=== PATIENT | female | born 1980 | race Caucasian/White ===

== ENCOUNTER 2016-03-25 14:20 | Emergency (ER) | payer BC | END 2016-03-25 15:35 | disposition left against medical advice (07) | LOC: UCEAST 14:20 | DX: Z53.21 Procedure and treatment not carried out due to patient leaving prior to being seen by health care provider (principal); R30.0 Dysuria ==

== ENCOUNTER 2017-08-14 01:13 | Emergency (ER) | payer BC ==
[2017-08-14] MEDS ORDERED: Metoclopramide IV* 5 MG/ML 2 ML VIAL IV ONE (01:40)
[2017-08-14] MEDS ORDERED: NS 0.9% 1000 ML* 1,000 ML IV ONE (01:40)
[2017-08-14] MEDS ORDERED: Ketorolac INJ* 30 MG/ML 1 ML VIAL IV ONE (01:40)
[2017-08-14 02:08] LABS: ABS Basophils 0.1 10^3/ul (0-0.2); ABS Eosinophils 0.2 10^3/ul (0-0.6); ABS Lymphocytes 4.1 10^3/ul (1.0-4.8); ABS Monocytes 1.1 10^3/ul (0-0.8); ABS Neutrophils 7.6 10^3/ul (1.5-7.7); ABS Nucleated RBC 0 10^3/ul; Eosinophil % 1.6 % (0-6); Hematocrit 38 % (35-47); Hemoglobin 12.7 g/dl (12.0-16.0); Mean Corpuscular HGB Conc 34 g/dl (31-36); Mean Corpuscular Hemoglobin 28 pg (27-31); Mean Corpuscular Volume 84 fL (80-97); Mean Platelet Volume 11.4 um3 (7.4-10.4); Nucleated Red Blood Cells % 0.1; Platelet Count 185 10^3/ul (150-450); Red Blood Count 4.52 10^6/ul (4.0-5.4); Red Cell Distribution Width 14 % (10.5-15); White Blood Count 13.1 10^3/ul (3.5-10.8)
[2017-08-14 02:19] LABS: INR 0.9 (0.77-1.02)
[2017-08-14 02:23] LABS: Urine Appearance Cloudy; Urine Blood 3+ (Negative); Urine Ketones Negative (Negative); Urine Protein 2+(100 mg/dL) (Negative); Urine Specific Gravity 1.023 (1.010-1.030); Urine Urobilinogen Negative (Negative)
[2017-08-14 02:25] LABS: EGFR Non-African American 67.8 (>60); Urine Color Red
[2017-08-14] MEDS ORDERED: Sulfamethox/Trimethoprim DS 800/160* TAB PO ONE (03:14)
[2017-08-14 03:33] VITALS: BP 118/71
--- NOTE | 2017-08-14 03:40 | ED ---
Papa Garcia Tiffany, scribed for Abran Savage MD on 08/14/17 at 0141 . Abdominal Pain/Female - HPI Summary HPI Summary: 36 y/o F presenting to [facility] complains of right flank pain since 2 days ago, worse since three hours ago. The pain radiates across her back. The patient rates the pain 7/10 in severity. Symptoms aggravated and alleviated by nothing. Reports abdominal pain, blood in urine, burning with urination, lower back pain , urgency. Denies fever, vomiting. States she started cipro yesterday. - History of Current Complaint Chief Complaint: EDFlankPain Stated Complaint: UTI Time Seen by Provider: 08/14/17 01:32 Hx Obtained From: Patient Onset/Duration: Lasting Days - 2, Still Present, Worse Since - three hours ago Severity Currently: Moderate Pain Intensity: 7 Pain Scale Used: 0-10 Numeric Radiates: Yes Radiates to: Other - across back Aggravating Factor(s): Nothing Alleviating Factor(s): Nothing Associated Signs and Symptoms: Positive: Other: - abdominal pain, blood in urine , burning with urination, lower back pain, urgency. Negative: Fever, Vomiting Allergies/Adverse Reactions: Allergies Allergy/AdvReac Type Severity Reaction Status Date / Time No Known Allergies Allergy Verified 01/09/12 15:36 PMH/Surg Hx/FS Hx/Imm Hx Previously Healthy: No Endocrine/Hematology History: Denies: Hx Diabetes Psychiatric History: Reports: Hx Anxiety, Hx Depression - Surgical History Surgery Procedure, Year, and Place: None Infectious Disease History: No Infectious Disease History: Denies: Traveled Outside the [place] in Last 30 Days - Family History Known Family History: Positive: Other - Reviewed and noncontributory - Social History Alcohol Use: None Hx Substance Use: No Substance Use Type: Reports: None Hx Tobacco Use: No Smoking Status (MU): Never Smoked Tobacco Review of Systems Negative: Fever Positive: Abdominal Pain. Negative: Vomiting Positive: burning, hematuria, urgency Positive: Other - Right flank pain, lower back pain All Other Systems Reviewed And Are Negative: Yes Physical Exam - Summary Physical Exam Summary: VITAL SIGNS: Reviewed. GENERAL: Patient is a well-developed and nourished (MALE OR FEMALE) who is lying comfortable in the stretcher. Patient is not in any acute respiratory distress. HEAD AND FACE: No signs of trauma. No ecchymosis, hematomas or skull depressions. No sinus tenderness. EYES: PERRLA, EOMI x 2, No injected conjunctiva, no nystagmus. EARS: Hearing grossly intact. Ear canals and tympanic membranes are within normal limits. MOUTH: Oropharynx within normal limits. NECK: Supple, trachea is midline, no adenopathy, no JVD, no carotid bruit, no c- spine tenderness, neck with full ROM. CHEST: Symmetric, no tenderness at palpation LUNGS: Clear to auscultation bilaterally. No wheezing or crackles. CVS: Regular rate and rhythm, S1 and S2 present, no murmurs or gallops appreciated. ABDOMEN: Suprapubic tenderness. Right CVA tenderness. EXTREMITIES: FROM in all major joints, no edema, no cyanosis or clubbing. NEURO: Alert and oriented x 3. No acute neurological deficits. Speech is normal and follows commands. SKIN: Dry and warm Triage Information Reviewed: Yes Vital Signs On Initial Exam: Initial Vitals Temp Pulse Resp BP Pulse Ox 96.7 F 98 20 143/90 98 08/14/17 01:14 08/14/17 01:14 08/14/17 01:14 08/14/17 01:14 08/14/17 01:14 Vital Signs Reviewed: Yes Diagnostics - Vital Signs Vital Signs Temp Pulse Resp BP Pulse Ox 08/14/17 01:14 96.7 F 98 20 143/90 98 - Laboratory Result Diagrams: 08/14/17 01:56 08/14/17 01:56 Lab Statement: Any lab studies that have been ordered have been reviewed, and results considered in the medical decision making process. - CT Abd/Pel CT Interpretation Completed By: Radiologist - No localizing signs for acute pathology. ED physician has reviewed this report. Re-Evaluation - Re-Evaluation First Eval Re-Evaluation Time: 03:15 Change: Improved Comment: Pt feels better, is agreeable to discharge. Abdominal Pain Fem Course/Dx - Course Course Of Treatment: 36 y/o F presenting to [facility] complains of right flank pain since 2 days ago, worse since three hours ago. Imaging, bloodwork/UA obtained. Pt will be discharged home with prescription for Bactrium and follow up from PCP in 1-2 days. - Diagnoses Provider Diagnoses: UTI (urinary tract infection) Discharge - Sign-Out/Discharge Documenting (check all that apply): Discharge/Admit/Transfer - Discharge Plan Condition: Stable Disposition: HOME Prescriptions: Sulfamethox/Trimethoprim DS* [Bactrim DS 800/160 TAB*] 1 tab PO BID #14 tab Patient Education Materials: Urinary Tract Infection in Women (ED) Referrals: Non Staff,Doctor [Medical Doctor] - 2 Days Additional Instructions: Follow up with your primary care provider in 1-2 days. Return to the Emergency Department for any new or worsening symptoms. The documentation as recorded by the Papa benson Tiffany accurately reflects the service I personally performed and the decisions made by , Abran Savage MD.
--- NOTE | 2017-08-14 08:19 | RAD ---
INDICATION: Flank pain. History of urolithiasis. COMPARISON: CT April 09, 2005 TECHNIQUE: Noncontrast axial source images were acquired from the level hemidiaphragms to the symphysis pubis as part of CT imaging for renal stone. Lung bases: The lung bases are clear. Liver: The liver is normal in size. Noncontrast imaging shows no evidence of a hepatic mass or ductal dilatation. Gallbladder: There are no calcified gallstones. There is no evidence of wall thickening or pericholecystic fluid.. Spleen: The spleen is normal in size. The noncontrast CT appearance is normal. Pancreas: Noncontrast imaging shows no pancreatic mass or ductal dilitation. Adrenal glands: No masses are identified. Kidneys/Bladder: There is no evidence of nephrolithiasis or CT evidence of hydronephrosis. There is no definitive evidence of ureterolithiasis. There are multiple phleboliths in the minor pelvis. Noncontrast imaging shows no evidence of a renal mass. The bladder is unremarkable.. Adenopathy: There is no evidence of intraperitoneal or retroperitoneal adenopathy. Evaluation is limited without oral contrast. Fluid collections: There are no free or localized fluid collections. Vessels: The aorta and iliac vessels are normal in caliber. There are no significant atherosclerotic changes. The IVC appears normal Pelvic organs: The uterus and adnexa appear normal GI tract: Evaluation of the bowel is limited without oral contrast. The stomach, small bowel, and lower GI tract appear grossly normal. There are no obstructive findings. The appendix is visualized and appears normal. Soft tissues: No soft tissue abnormalities of the extraperitoneal abdomen or pelvis are identified. Osseous structures: There are no acute osseous findings. IMPRESSION: No convincing evidence of urolithiasis. No obstructive uropathy
== END 2017-08-14 03:32 | disposition home or self-care (01) ==
LOC: ED 01:13
DX: N39.0 Urinary tract infection, site not specified (principal)
CPT/HCPCS: 36415; 74176; 80053; 81003; 81015; 84702; 85025; 85610; 85730; 86140; 87086; 96374; 96375; 99283; A9270-GY; J1885; J2765

== ENCOUNTER 2018-05-24 13:55 | Emergency (ER) | payer BC ==
[2018-05-24 14:38] VITALS: BP 127/93
--- NOTE | 2018-05-24 14:56 | UC ---
Skin Complaint HPI - HPI Summary HPI Summary: Patient presents to urgent care concern for infection right naris. Patient's a 37-year-old female who was not [place] compromise. Patient started a job at the [facility] on the [employer] in approximately 2 months ago. Patient states approximately 2 weeks ago she has some discomfort on the septum of her right. Patient states she looked at it and it was red and irritated. Patient states she cleaned it twice a day. Patient states it then became more raw and irritated and surgery draining. Patient states she put muciporin ointment on the wound syncopal requesting painful. Patient states it's gotten more swollen as well. Patient without any wounds any place else. pt sates she has been touching and cleaning several times a day. pt states she has never had cold sores. no fevers. 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 No MRSA in the family. Patient' s medications reviewed this visit. Pt states she is not - History of Current Complaint Chief Complaint: UCSkin Time Seen by Provider: 05/24/18 14:56 Stated Complaint: PERSONAL Hx Obtained From: Patient Hx Last Menstrual Period: 05/20/18 Pain Intensity: 5 - Allergy/Home Medications Allergies/Adverse Reactions: Allergies Allergy/AdvReac Type Severity Reaction Status Date / Time No Known Allergies Allergy Verified 05/24/18 14:28 Home Medications: Home Medications Dextroamphetamine/Amphetamine [Adderall Xr 20 mg Capsule] 20 mg PO DAILY [History Confirmed 05/24/18] Oxycodone TAB(NF) [Oxycodone HCl 10 MG] 10 mg PO Q6H PRN 05/24/18 [History Confirmed 05/24/18] Sertraline* [Zoloft*] 100 mg PO DAILY 05/24/18 [History Confirmed 05/24/18] hydrOXYzine HCl [Hydroxyzine HCl] 10 mg PO BEDTIME PRN 05/24/18 [History Confirmed 05/24/18] PMH/Surg Hx/FS Hx/Imm Hx Previously Healthy: Yes - Surgical History Surgical History: Yes Surgery Procedure, Year, and Place: bilat breast reduction -early . polyp removal - Family History Known Family History: Positive: Other, Non-Contributory - Social History Occupation: Employed Full-time Lives: With Family Alcohol Use: None Substance Use Type: None Smoking Status (MU): Light Every Day Tobacco Smoker Amount Used/How Often: 5-8 cigs/ day - Immunization History Most Recent Influenza Vaccination: 12/02/12 Most Recent Tetanus Shot: 2011 Most Recent Pneumonia Vaccination: none Review of Systems All Other Systems Reviewed And Are Negative: Yes Constitutional: Positive: Negative Skin: Positive: Other - right nare lesion Physical Exam - Summary Physical Exam Summary: Vital Signs Reviewed: Yes A+Ox3, no distress Eyes: Conjunctiva Clear, LEANDRA. EOM intact and full ENT: Hearing grossly normal TM x 2 clear, right nares - pt with scabbed irritated lesion on the septal mucosal membrate. moist appearing, no drainage. no fluctuance mild edmea surrounding lesion left nares without lesions, mmoist, uvula midline, no exudate, no erythema Neck: Positive: Supple Respiratory: Positive: No respiratory distress, No accessory muscle use + CTA throughout no w/r Cardiovascular: RRR nl s1, s2 no m/r CBT <2 sec abd soft + BS nt/nd no guarding, no distension Musculoskeletal Exam: SHEIKH x 4 without difficulty Strength Intact, ROM Intact Neurological: Positive: Alert, + sensation throughout Psychological: Positive: Normal Response To Family Skin: Positive: no rash, no ecchymosis Triage Information Reviewed: Yes Vital Signs: Initial Vital Signs Temp 98.5 F 05/24/18 14:31 Pulse 104 05/24/18 14:31 Resp 16 05/24/18 14:31 BP 127/93 05/24/18 14:31 Pulse Ox 100 05/24/18 14:31 Course/Dx - Course Course Of Treatment: Patient presents to urgent care for evaluation of a lesion on her right nares. Patient states his been about 2 weeks. Patient states it' s gotten bigger and more painful. Patient did have some drainage. Patient's been covering it with her son's muciporin - states increased erythema and pain intensity. On exam, erythema mild edema, no fluctuance scabbed lesion. Culture taken (pt very concerned Re: MRSA). Doxycyline. vasoline only. recommend pt stop touching, pickin, blowing nose. humidify air. return precautions - Diagnoses Provider Diagnosis: Wound of mucosa Discharge - Sign-Out/Discharge Documenting (check all that apply): Patient Departure All imaging exams completed and their final reports reviewed: No Studies - Discharge Plan Condition: Stable Disposition: HOME Prescriptions: DOXYcycline CAP(*) [DOXYcycline 100MG CAP(*)] 100 mg PO BID #20 cap Patient Education Materials: Acute Wound Care (ED) Referrals: Angelita Byrd MD [Primary Care Provider] - Additional Instructions: Okay to put a thin layer of vasoline on your wound 2 times a day Okay to alternate ibuprofen (Advil, Motrin) and Tylenol every 3 hours for pain Take antibiotics as prescribed A culture from your wound has been sent to the lab - this will take 2-3 days for return Contact your doctor or return with questions or concerns - Billing Disposition and Condition Condition: STABLE Disposition: Home
== END 2018-05-24 15:25 | disposition home or self-care (01) ==
LOC: UCEAST 13:55
DX: K13.79 Other lesions of oral mucosa (principal); F17.210 Nicotine dependence, cigarettes, uncomplicated
CPT/HCPCS: 87070; 87205; 99212; G0463